=== PATIENT | male | born 1965 | race Caucasian/White ===

== ENCOUNTER 2018-02-06 12:28 | Emergency (ER) | payer OTHER ==
[2018-02-06 13:21] LABS: ABS Basophils 0 10^3/ul (0-0.2); ABS Eosinophils 0 10^3/ul (0-0.6); ABS Lymphocytes 1.2 10^3/ul (1.0-4.8); ABS Monocytes 0.8 10^3/ul (0-0.8); ABS Neutrophils 8.7 10^3/ul (1.5-7.7); ABS Nucleated RBC 0 10^3/ul; Eosinophil % 0.3 % (0-6); Hematocrit 47 % (42-52); Hemoglobin 16.4 g/dl (14.0-18.0); Lymphocyte % 11.5 % (25-47); Mean Corpuscular HGB Conc 35 g/dl (31-36); Mean Corpuscular Hemoglobin 31 pg (27-31); Mean Corpuscular Volume 89 fL (80-94); Mean Platelet Volume 7.4 um3 (7.4-10.4); Nucleated Red Blood Cells % 0; Platelet Count 228 10^3/ul (150-450); Red Blood Count 5.25 10^6/ul (4.0-5.4); Red Cell Distribution Width 14 % (10.5-15); White Blood Count 10.8 10^3/ul (3.5-10.8)
[2018-02-06 13:43] LABS: EGFR Non-African American 47.7 (>60)
[2018-02-06 14:28] LABS: Urine Appearance Turbid; Urine Blood 3+ (Negative); Urine Color Yellow; Urine Ketones Trace (Negative); Urine Protein Negative (Negative); Urine Specific Gravity 1.025 (1.010-1.030); Urine Urobilinogen Negative (Negative)
--- NOTE | 2018-02-06 15:41 | RAD ---
INDICATION: LEFT lower quadrant pain. Pain between the rectum and the scrotum. Recent diagnosis of prostatitis. Urinary retention. Question urolithiasis. Post cholecystectomy. COMPARISON: March 11, 2008 TECHNIQUE: Multidetector CT images were obtained from the lung bases to the ischial tuberosities. Evaluation of the viscera is limited without IV contrast. Multiplanar reformation. REPORT: Minimal LEFT posterior basilar calcified pleural plaque without change. Small calcified granuloma at the RIGHT middle lobe. Negative for CT abnormality of the unenhanced liver. Post cholecystectomy. Negative for biliary dilatation. Unremarkable pancreas and spleen. Negative for CT abnormality of the upper GI, small bowel, or appendix. Severe colonic diverticulosis without findings of acute diverticulitis. Negative for ascites, free air, or significant hernias. Normal adrenal glands. Bilateral solitary dominant renal cortical cysts. No suspicious focal renal lesions. 2 mm nonobstructing stone inferior pole calyx RIGHT kidney. Negative for RIGHT hydronephrosis. Mild LEFT hydroureteronephrosis is traced to a 3 mm maximum dimension distal ureteral stone approximate 1.5 cm from the ureterovesicular junction. Minimal LEFT perinephric edema. Largely decompressed urinary bladder without suspicious finding. Symmetric appearance of the seminal vesicles. Negative for lymphadenopathy. Normal diameter abdominal aorta and common iliac arteries. Physiologic distention of the IVC. Negative for suspicious focal osseous lesions. 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 IMPRESSION: Mild LEFT hydroureteronephrosis is traced to a 3 mm distal LEFT ureteral stone.
[2018-02-06] MEDS ORDERED: Ketorolac INJ* 30 MG/ML 1 ML VIAL IV PUSH ONE (15:46)
[2018-02-06] MEDS ORDERED: NS 0.9% 1000 ML* 1,000 ML IV ONE (15:47)
[2018-02-06 17:45] VITALS: BP 154/96
--- NOTE | 2018-02-07 10:51 | ED ---
Keren Keenan Nilda, scribed for Mark Poe MD on 02/06/18 at 1431 . GI/ HPI - HPI Summary HPI Summary: This patient is a 52 year old M presenting to [facility] with a chief complaint of constant LLQ pain and back pain for the past few days. Pt states he woke up on with pain in area between rectum and scrotum and saddle parathesia ( resolved). He states that at the time he kept waking up every few hours with intermittent erections, urinary urgency, and urinary retention . Pt also notes constipation and R-sided penile pain (past few weeks). On 02/03/18 pt went to Urgent Care where he was treated with Bactrim for prostatitis with no relief. Pt went to PCP today, was examined, and was advised to go to ED for imaging. The patient rates the pain 5/10 in severity. Symptoms aggravated by palpation and alleviated by nothing. - History of Current Complaint Chief Complaint: EDAbdPain Time Seen by Provider: 02/06/18 14:18 Stated Complaint: GENITAL ISSUE,ABD PAIN Hx Obtained From: Patient Onset/Duration: Started Days Ago, Still Present Timing: Constant Current Severity: Moderate Pain Intensity: 6 Location of Pain: LUQ, Other - back Additional Locations for Males: Penis Associated Signs and Symptoms: Positive: Other: - saddle parathesia (resolved) and multiple intermittent erections accompanied by urinary urgency and retention every few hours. Pt also notes constipation and R-sided penile pain ( past few weeks). Aggravating Factor(s): Palpation Alleviating Factor(s): Nothing - Allergy/Home Medications Allergies/Adverse Reactions: Allergies Allergy/AdvReac Type Severity Reaction Status Date / Time No Known Allergies Allergy Verified 02/06/18 15:58 Home Medications: Home Medications Allopurinol TAB* [Zyloprim 300 MG TAB*] 300 mg PO DAILY 02/06/18 [History Confirmed 02/06/18] LORazepam TAB(*) [Ativan 0.5 MG TAB (*)] 1 tab PO BEDTIME PRN 02/06/18 [History Confirmed 02/06/18] Sulfamethox/Trimethoprim DS* [Bactrim DS 800/160 TAB*] 1 tab PO BID 02/06/18 [ History Confirmed 02/06/18] Tamsulosin CAP* [Flomax CAP*] 1 cap PO DAILY 02/06/18 [History Confirmed ] Venlafaxine EXT RELEASE CAP* [Effexor Xr CAP*] 37.5 mg PO DAILY 02/06/18 [ History Confirmed 02/06/18] busPIRone TAB* [Buspar TAB*] 15 mg PO BID 02/06/18 [History Confirmed 02/06/18] clonazePAM [Clonazepam] 1 tab PO DAILY PRN 02/06/18 [History Confirmed 02/06/18] PMH/Surg Hx/FS Hx/Imm Hx Endocrine/Hematology History: Denies: Hx Diabetes GI History: Reports: Hx Diverticulosis, Other GI Disorders - stasis recti Psychiatric History: Reports: Hx Anxiety Infectious Disease History: No Infectious Disease History: Denies: Traveled Outside the [place] in Last 30 Days - Family History Known Family History: Positive: Other - CA Review of Systems Negative: Fever, Chills Negative: Erythema Negative: Sore Throat Negative: Chest Pain Negative: Shortness Of Breath, Cough Positive: Abdominal Pain, Other - constipation. Negative: Vomiting, Nausea Positive: pain - area between rectum and scrotum (resolved), R-sided penile pain , urgency, other - urinary retention. Negative: dysuria, hematuria Positive: Other - back pain . Negative: Myalgia, Edema Negative: Rash Neurological: Other - negative dizziness Positive: Paresthesia - saddle paresthesia (resolved) All Other Systems Reviewed And Are Negative: Yes Physical Exam - Summary Physical Exam Summary: Nurse Verna was present during the exam. Constitutional: Well-developed, Well-nourished, Alert. (-) Distressed Skin: Warm, Dry HENT: Normocephalic; Atraumatic Eyes: Conjunctiva normal Neck: Musculoskeletal ROM normal neck. (-) JVD, (-) Stridor, (-) Tracheal deviation Cardio: Rhythm regular, rate normal, Heart sounds normal; Intact distal pulses; The pedal pulses are 2+ and symmetric. Radial pulses are 2+ and symmetric. (-) Murmur Pulmonary/Chest wall: Effort normal. (-) Respiratory distress, (-) Wheezes, (-) Rales Abd: Soft, Obese, (-) Tenderness, (-) Guarding, (-) Rebound : No jeremías gangrene, no palpable hernia, no testicular tenderness Rectal: intact sphincter tone Musculoskeletal: (-) Edema, 1+ bilat deep tendon reflexes Lymph: (-) Cervical adenopathy Neuro: Alert, Oriented x3 Psych: Mood and affect Normal Triage Information Reviewed: Yes Vital Signs On Initial Exam: Initial Vitals Temp Pulse Resp BP Pulse Ox 96.8 F 114 20 138/96 96 02/06/18 12:30 02/06/18 12:30 02/06/18 12:30 02/06/18 12:30 02/06/18 12:30 Vital Signs Reviewed: Yes Diagnostics - Vital Signs Vital Signs Temp Pulse Resp BP Pulse Ox 02/06/18 14:00 97.9 F 93 16 141/86 94 02/06/18 12:30 96.8 F 114 20 138/96 96 - Laboratory Lab Results: Lab Results 02/06/18 02/06/18 02/06/18 Range/Units 13:09 13:09 13:09 WBC 10.8 (3.5-10.8) 10^3/ul RBC 5.25 (4.0-5.4) 10^6/ul Hgb 16.4 (14.0-18.0) g/dl Hct 47 (42-52) % MCV 89 (80-94) fL MCH 31 (27-31) pg MCHC 35 (31-36) g/dl RDW 14 (10.5-15) % Plt Count 228 (150-450) 10^3/ul MPV 7.4 (7.4-10.4) um3 Neut % (Auto) 80.2 (38-83) % Lymph % (Auto) 11.5 L (25-47) % Christian % (Auto) 7.6 H (0-7) % Eos % (Auto) 0.3 (0-6) % Baso % (Auto) 0.4 (0-2) % Absolute Neuts (auto) 8.7 H (1.5-7.7) 10^3/ul Absolute Lymphs (auto) 1.2 (1.0-4.8) 10^3/ul Absolute Monos (auto) 0.8 (0-0.8) 10^3/ul Absolute Eos (auto) 0 (0-0.6) 10^3/ul Absolute Basos (auto) 0 (0-0.2) 10^3/ul Absolute Nucleated RBC 0 10^3/ul Nucleated RBC % 0 Sodium 138 L (139-145) mmol/L Potassium 4.2 (3.5-5.0) mmol/L Chloride 103 (101-111) mmol/L Carbon Dioxide 25 (22-32) mmol/L Anion Gap 10 (2-11) mmol/L BUN 13 (6-24) mg/dL Creatinine 1.53 H (0.67-1.17) mg/dL Est GFR ( Amer) 61.3 (>60) Est GFR (Non-Af Amer) 47.7 (>60) BUN/Creatinine Ratio 8.5 (8-20) Glucose 136 H (70-100) mg/dL Lactic Acid 1.6 (0.5-2.0) mmol/L Calcium 9.8 (8.6-10.3) mg/dL Total Bilirubin 0.60 (0.2-1.0) mg/dL AST 67 H (13-39) U/L ALT 93 H (7-52) U/L Alkaline Phosphatase 64 (34-104) U/L C-Reactive Protein 2.96 (< 5.00) mg/L Total Protein 7.6 (6.4-8.9) g/dL Albumin 4.4 (3.2-5.2) g/dL Globulin 3.2 (2-4) g/dL Albumin/Globulin Ratio 1.4 (1-3) Lipase 20 (11.0-82.0) U/L Result Diagrams: 02/06/18 13:09 02/06/18 13:09 Lab Statement: Any lab studies that have been ordered have been reviewed, and results considered in the medical decision making process. - CT Abd/Pel CT Interpretation Completed By: Radiologist - CT Abd/Pel reveals Mild LEFT hydroureteronephrosis is traced to a 3 mm distal LEFT ureteral stone. Dr. Poe has reviewed this radiology report. GIGU Course/Dx - Course Assessment/Plan: urinating well, pain under control, no ureteral obstruction. - Diagnoses Provider Diagnoses: Ureteral stone Discharge - Sign-Out/Discharge Documenting (check all that apply): Discharge/Admit/Transfer - Discharge Plan Condition: Stable Disposition: HOME Prescriptions: HYDROcodone/ACETAMIN 5-325 MG* [[place] 5-325 TAB*] 1 tab PO Q6H PRN #10 tab MDD 4 PRN Reason: Pain - Moderate To Severe Ibuprofen TAB* [Motrin TAB* 600 MG] 600 mg PO Q6H PRN #20 tab PRN Reason: Pain - Moderate To Severe Tamsulosin CAP* [Flomax CAP*] 0.4 mg PO DAILY #5 cap Patient Education Materials: Ureteral Stones (ED) Referrals: Deangelo Galvez MD [Medical Doctor] - 2 Days Additional Instructions: RETURN TO THE EMERGENCY DEPARTMENT FOR CHANGING OR WORSENING SYMPTOMS. The documentation as recorded by the Keren alexis Nilda accurately reflects the service I personally performed and the decisions made by Deepika haines Jerry, MD.
== END 2018-02-06 17:44 | disposition home or self-care (01) ==
LOC: ED 12:28
DX: N20.1 Calculus of ureter (principal); R10.32 Left lower quadrant pain
CPT/HCPCS: 36415; 74176; 80053; 81003; 81015; 83605; 83690; 85025; 86140; 96374; 99283; J1885